=== PATIENT | female | born 1940 | race Caucasian/White ===

== ENCOUNTER 2022-06-24 10:12 | Emergency (ER) | payer MEDICARE ==
[~2022-06-24] VITALS: Ht 165.1 cm; Wt 52.2 kg
[2022-06-24 10:26] VITALS: BP_SYST 142
--- NOTE | 2022-06-24 10:30 | NUR ---
TRIAGED AND BROUGHT BACK TO BED #8 AND REPORT GIVEN TO LAMONT
--- NOTE | 2022-06-24 11:04 | NUR ---
Dr Beauchamp evaluating patient at this time
[2022-06-24 11:31] LABS: BASOPHILS # (AUTO) 0.1 K/uL (0.0-0.2); EOSINOPHILS % (AUTO) 0.4 % (0.0-4.0); HEMATOCRIT 40.1 % (36-48); HEMOGLOBIN 13.7 g/dL (12.0-16.0); MEAN CORPUSCULAR HEMOGLOBIN 29 pg (27-31); MEAN CORPUSCULAR HGB CONC 34 % (32-36); MEAN CORPUSCULAR VOLUME 85 fL (79.0-98.0); MONOCYTES # (AUTO) 0.5 K/uL (0.0-1.0); MONOCYTES % (AUTO) 4.8 % (1.7-9.3); NEUTROPHILS # (AUTO) 7.7 K/uL (1.8-7.7); NEUTROPHILS % (AUTO) 82.8 % (40.0-70.0); PLATELET COUNT (AUTO) 200 K/uL (130-430); RED BLOOD CELL COUNT(AUTO) 4.73 MIL/uL (4.2-6.2); RED CELL DISTRIBUTION WIDTH 13.8 % (9.0-15.0); WHITE BLOOD COUNT (AUTO) 9.4 K/uL (4.8-10.8)
[2022-06-24 11:41] LABS: ANION GAP 6 (5-15); CALCIUM 9.7 mg/dL (8.4-11.0); CHLORIDE 106 mmol/L (98-107); CREATININE 0.72 mg/dL (0.55-1.30); GLUCOSE 198 mg/dL (70-99); UREA NITROGEN, BLOOD 12 mg/dL (8-21)
[2022-06-24 11:50] LABS: ALANINE AMINOTRANSFERASE 17 U/L (12-78); ALBUMIN 3.9 g/dL (3.4-4.8); ASPARTATE AMINOTRANSFERASE 17 U/L (10-37); TOTAL BILIRUBIN 0.9 mg/dL (0.0-1.0)
--- NOTE | 2022-06-24 12:15 | NUR ---
Pt gowned and phlebotomy drawing blood for lab analysis.
--- NOTE | 2022-06-24 12:20 | NUR ---
Radiology bedside Xray.
--- NOTE | 2022-06-24 12:22 | NUR ---
# 20 gauge angiocath placed to RAC. Use of asceptic technique. Opsite placed over site. Blood return noted. Blood for lab drawn from site. Flushed with 10 cc of normal saline. No evidence of infiltration noted. Patient tolerated well.
--- NOTE | 2022-06-24 12:39 | NUR ---
Pt bib daughter from home. CC general weakness. Pt states Metformin dosage change in April has changed pt energy lowered level. Pt notes syncope previous 2 days and lack of appetite. Pt is aaox2 skinn intact, dry and flaky. Cap refill <3 sec. Nad. PMHx Diabetic Medications: atorvastatin, metformin losartan, atenolol and Norvasc.
[2022-06-24] MEDS ORDERED: ATEN-167 PO (13:02)
[2022-06-24] MEDS ORDERED: AMLO5TAB4 PO (13:02)
[2022-06-24] MEDS ORDERED: LOSA50TA28 PO (13:02)
[2022-06-24] MEDS ORDERED: ATOR40TA68 PO (13:02)
[2022-06-24] MEDS ORDERED: METF-834 PO (13:02)
--- NOTE | 2022-06-24 13:24 | NUR ---
pt. to be admitted per Dr. Beauchamp Diagnosis: Syncope, Dieates/Telle Waiting for insurance doc. from registration to initiate procedures.
[2022-06-24 14:29] LABS: BILIRUBIN,URINE NEGATIVE (NEGATIVE); COLOR,URINE YELLOW (YELLOW); GLUCOSE,URINE TRACE (NEGATIVE); KETONES,URINE TRACE (NEGATIVE); LEUKOCYTE ESTERASE ,URINE NEGATIVE (NEGATIVE); NITRITE, URINE POSITIVE (NEGATIVE); PROTEIN URINE NEGATIVE (NEGATIVE); UROBILINOGEN,URINE 0.2 (0.2-1.0)
[2022-06-24 14:31] LABS: BLOOD, URINE TRACE (NEGATIVE); CLARITY/URINE HAZY (CLEAR)
--- NOTE | 2022-06-24 14:31 | NUR ---
Pt with grand daughter bedside. IV 20 gauge in right ac without infilltrations. Pt is eating diabetic diet tolerating well.
[2022-06-24 14:41] LABS: BACTERIA,URINE MANY /HPF (None Seen); MUCUS,URINE 1+ /LPF (None Seen); RBC,URINE 0-3 /HPF (0-3); WBC,URINE 0-3 /HPF (0-3)
--- NOTE | 2022-06-24 14:41 | NUR ---
DR. MANDUJANO, [facility], CALLED BACK TO SPEAK TO DR. MANDUJANO REGARDING PT STATUS.
--- NOTE | 2022-06-24 16:29 | NUR ---
grand leon Ellis contact info at [phone] for any changes condition and transfer information.
--- NOTE | 2022-06-24 19:09 | NUR ---
Pt informed of [facility] transfer. contacted [facility] family of transfer ETA 1999.
--- NOTE | 2022-06-24 21:00 | NUR ---
Patient to be transferred to . Is being transferred due to higher level of care. Receiving facility has accepting physician and available space. ER physician has signed transfer form. Patient or responsible republican has agreed to transfer and signed form. Patient belongings inventoried and will be sent with patient. Copy of nursing notes, lab reports, EKG, Physicians Orders and X-rays to be sent with patient. Report called to SANDHYA BRADSHAW at receiving facility. Receiving physician is MAMI.ambulance service has been called for transfer.
--- NOTE | 2022-06-24 21:09 | NUR ---
PT REPORT GIVEN TO RN AT [facility] [phone]
[2022-06-24 21:50] VITALS: BP_SYST 142
== END 2022-06-24 21:50 | disposition short-term general hospital (02) ==
LOC: SED 10:12
DX: R55 Syncope and collapse (principal); E11.9 Type 2 diabetes mellitus without complications; R53.1 Weakness; R06.02 Shortness of breath; Z79.899 Other long term (current) drug therapy; Z20.822 Contact with and (suspected) exposure to COVID-19
CPT/HCPCS: 36415; 70450-TC; 71045; 76376; 80053; 81000; 83880; 84484; 85025; 87086; 93005; 99285

== ENCOUNTER 2023-03-13 20:54 | Inpatient (IN) | payer MEDICARE ==
[~2023-03-13] VITALS: Ht 170.2 cm; Wt 56.7 kg
[~2023-03-13 20:54] MED LIST: AMLO5TAB4 PO; ATEN-167 PO; ATOR40TA68 PO; LOSA50TA28 PO; METF-834 PO
[2023-03-13 21:23] VITALS: BP_SYST 99; PULSE 100; RESP 16; TEMP 97.4; O2SAT 92
[2023-03-13] MEDS ORDERED: cefTRIAXone 1 GM IVPB PREMIX 50 ML IV ONE (21:45)
[2023-03-13] MEDS ORDERED: NS 500 ML IV ONE (21:45)
[2023-03-13 21:59] LABS: HEMATOCRIT 37.5 % (36-48); HEMOGLOBIN 12.6 g/dL (12.0-16.0); MEAN CORPUSCULAR HEMOGLOBIN 28 pg (27-31); MEAN CORPUSCULAR HGB CONC 34 % (32-36); MEAN CORPUSCULAR VOLUME 84 fL (79.0-98.0); RED BLOOD CELL COUNT(AUTO) 4.48 MIL/uL (4.2-6.2); RED CELL DISTRIBUTION WIDTH 14.2 % (9.0-15.0); WHITE BLOOD COUNT (AUTO) 14.1 K/uL (4.8-10.8)
[2023-03-13 22:17] LABS: INR 1.1 (0.8-1.2); PROTHROMBIN TIME 11.3 SECS (9.5-12.5)
[2023-03-13 22:31] LABS: BAND % (MANUAL) 28 % (0-6); BASOPHILS % (MANUAL) 0 % (0-2); EOSINOPHILS % (MANUAL) 0 % (0-7); LYMPHOCYTES % (MANUAL) 1 % (20-46); MONOCYTES % (MANUAL) 3 % (0-11); PLATELET COUNT (AUTO) 72 K/uL (130-430)
[2023-03-13 22:33] LABS: ALANINE AMINOTRANSFERASE 34 U/L (12-78); ALBUMIN 2.7 g/dL (3.4-4.8); ANION GAP 11 (5-15); ASPARTATE AMINOTRANSFERASE 85 U/L (10-37); CALCIUM 8.7 mg/dL (8.4-11.0); CHLORIDE 99 mmol/L (98-107); CREATININE 2.45 mg/dL (0.55-1.30); GLUCOSE 153 mg/dL (74-106); LIPASE 599 U/L (73-393); TOTAL BILIRUBIN 0.8 mg/dL (0.0-1.0); UREA NITROGEN, BLOOD 44 mg/dL (8-21)
[2023-03-13] MEDS ORDERED: NACL 0.9% 1,000 ML IV ONE (23:00)
[2023-03-13] MEDS ORDERED: POTASSIUM CHLORIDE 20 MEQ/PKT PACKET PO ONE (23:00)
[2023-03-14 00:01] LABS: BILIRUBIN,URINE 1+ (NEGATIVE); BLOOD, URINE 3+ (NEGATIVE); CLARITY/URINE CLOUDY (CLEAR); GLUCOSE,URINE NEGATIVE (NEGATIVE); KETONES,URINE TRACE (NEGATIVE); LEUKOCYTE ESTERASE ,URINE 3+ (NEGATIVE); NITRITE, URINE NEGATIVE (NEGATIVE); PH,URINE 6.5 (5.0-8.0); PROTEIN URINE 3+ (NEGATIVE); UROBILINOGEN,URINE 0.2 (0.2-1.0)
[2023-03-14 00:27] LABS: COLOR,URINE YELLOW (YELLOW)
[2023-03-14 00:58] LABS: BACTERIA,URINE MANY /HPF (None Seen); WBC,URINE >100 /HPF (0-3)
[2023-03-14] MEDS ORDERED: NACL 0.9% 1,000 ML IV ONE ×2 (02:45→05:00)
[2023-03-14] MEDS ORDERED: ASPIRIN 325 MG TABLET PO ONE (04:30)
[2023-03-14] MEDS ORDERED: MORPHINE 2 MG/ML INJ. SYRINGE IVP PRN ×2 (08:00)
[2023-03-14] MEDS ORDERED: MAGNESIUM SULFATE 50 ML IV PRN (08:00)
[2023-03-14] MEDS ORDERED: DOCUSATE SODIUM 100 MG CAPSULE PO PRN (08:00)
[2023-03-14] MEDS ORDERED: ACETAMINOPHEN 325 MG TABLET PO PRN (08:00)
[2023-03-14] MEDS ORDERED: NALOXONE HCL 0.4 MG/ML AMP (NARCAN) IVP PRN ×2 (08:00)
[2023-03-14] MEDS ORDERED: POTASSIUM CHLORIDE 20 MEQ TAB.PRT.SR PO PRN (08:00)
[2023-03-14] MEDS ORDERED: ZOLPIDEM TARTRATE 5 MG TABLET PO PRN (08:00)
[2023-03-14] MEDS ORDERED: LORazepam 2 MG/ML VIAL IVP PRN (08:00)
[2023-03-14] MEDS ORDERED: ONDANSETRON HCL 4 MG/2 ML VIAL IVP PRN (08:00)
[2023-03-14] MEDS ORDERED: MUPIROCIN 2% TOPICAL OINTMENT 22 GM NS PRN (08:00)
[2023-03-14] MEDS ORDERED: DEXTROSE 50%-WATER 50 ML DISP.SYRIN IVP PRN (08:30)
[2023-03-14 08:49] LABS: ANION GAP 6 (5-15); CALCIUM 7.7 mg/dL (8.4-11.0); CHLORIDE 104 mmol/L (98-107); CREATININE 1.96 mg/dL (0.55-1.30); GLUCOSE 90 mg/dL (74-106); UREA NITROGEN, BLOOD 48 mg/dL (8-21)
[2023-03-14 08:57] LABS: HEMOGLOBIN 10.9 g/dL (12.0-16.0); MEAN CORPUSCULAR HEMOGLOBIN 28 pg (27-31); MEAN CORPUSCULAR HGB CONC 33 % (32-36); MEAN CORPUSCULAR VOLUME 85 fL (79.0-98.0); PLATELET COUNT (AUTO) 67 K/uL (130-430); RED CELL DISTRIBUTION WIDTH 14.7 % (9.0-15.0)
[2023-03-14] MEDS ORDERED: ATORVASTATIN 20 MG TABLET PO ONE (09:00)
[2023-03-14] MEDS ORDERED: LOSARTAN POTASSIUM 50 MG TABLET (COZAAR) PO ONE (09:00)
[2023-03-14] MEDS ORDERED: cefTRIAXone 1 GM in D5W 50 ML IV SCH (09:00)
[2023-03-14] MEDS ORDERED: amLODIPine BESYLATE 5 MG TABLET PO ONE (09:00)
[2023-03-14] MEDS ORDERED: HEPARIN SODIUM,PORCINE 5,000 UNITS/ML VIAL SUBCUT SCH (09:00)
[2023-03-14] MEDS ORDERED: ATENOLOL 50 MG TABLET (TENORMIN) PO SCH (09:00)
[2023-03-14 09:02] LABS: WHITE BLOOD COUNT (AUTO) 23.7 K/uL (4.8-10.8)
[2023-03-14] MEDS ORDERED: cefTRIAXone 1 GM VIAL ONE (10:52)
[2023-03-14] MEDS ORDERED: KCL 20 mEq in 100 mL (PREMIX) 100 ML IV SCH (11:00)
[2023-03-14] MEDS ORDERED: INSULIN REGULAR, HUMAN 100 UNITS/ML, 3 ML VIAL (humuLIN R) SUBCUT PRN (11:30)
[2023-03-14 12:00] LABS: ATYPICAL LYMPHOCYTES % 0 % (0-0); BAND % (MANUAL) 20 % (0-6); BASOPHILS % (MANUAL) 0 % (0-2); EOSINOPHILS % (MANUAL) 0 % (0-7); LYMPHOCYTES % (MANUAL) 3 % (20-46); METAMYELOCYTES % 1 % (0-0); MONOCYTES % (MANUAL) 10 % (0-11); MYELOCYTES % 3 % (0-0)
[2023-03-14] MEDS ORDERED: PIPERACILLIN/TAZO 2.25G/DEX-IS 50 ML IV SCH (12:00)
[2023-03-14] MEDS ORDERED: AZITHROMYCIN 500 MG in NS 250 ML IV SCH (13:00)
[2023-03-14] MEDS ORDERED: ONDANSETRON HCL 4 MG/2 ML VIAL IVP ONE (13:30)
[2023-03-14] MEDS ORDERED: metroNIDAZOLE 500 mg/NS 100 ML IV SCH (14:00)
[2023-03-14 16:00] VITALS: BP_SYST 126; PULSE 69; RESP 16; TEMP 97.7; O2SAT 98
[2023-03-14] MEDS ORDERED: INSULIN REGULAR, HUMAN 100 UNITS/ML, 3 ML VIAL (humuLIN R) SUBCUT SCH (21:00)
[2023-03-14] MEDS ORDERED: LOSARTAN POTASSIUM 50 MG TABLET (COZAAR) PO SCH (21:00)
[2023-03-15] MEDS ORDERED: ATORVASTATIN 20 MG TABLET PO SCH (09:00)
[2023-03-15] MEDS ORDERED: amLODIPine BESYLATE 5 MG TABLET PO SCH (09:00)
== END 2023-03-14 16:35 | disposition short-term general hospital (02) | DRG 871 ==
LOC: SED 20:54 → STU 03-14 04:49
PROVIDERS: ADMIT General Practice; ATTEND General Practice
DX: A41.9 Sepsis, unspecified organism (principal); I21.A1 Myocardial infarction type 2; N17.0 Acute kidney failure with tubular necrosis; R65.21 Severe sepsis with septic shock; R57.8 Other shock; J69.0 Pneumonitis due to inhalation of food and vomit; N39.0 Urinary tract infection, site not specified; E87.20 Acidosis, unspecified; C25.9 Malignant neoplasm of pancreas, unspecified; Z20.822 Contact with and (suspected) exposure to COVID-19; I12.9 Hypertensive chronic kidney disease with stage 1 through stage 4 chronic kidney disease, or unspecified chronic kidney disease; E11.22 Type 2 diabetes mellitus with diabetic chronic kidney disease; N18.9 Chronic kidney disease, unspecified; I48.0 Paroxysmal atrial fibrillation; I95.9 Hypotension, unspecified; E87.6 Hypokalemia; Z82.0 Family history of epilepsy and other diseases of the nervous system; Z85.07 Personal history of malignant neoplasm of pancreas; Z90.710 Acquired absence of both cervix and uterus
CPT/HCPCS: 36415; 71045; 80048; 80053; 81000; 82962; 83037; 83605; 83690; 83880; 84484; 85007; 85027; 85610-TC; 85730-TC; 86301; 87040; 87086; 93005; 93306; 96365; 99291; G0378; J0456; J0696; J1815; J2405; J2543; J3480; J3490; J7030; J7050; J7060